=== PATIENT | female | born 1935 | race Caucasian/White ===

== ENCOUNTER → 2023-09-17 13:47 | Outpatient (REF) | payer MEDICARE, SELFPAY | LOC: DHCBC HW 13:47 | PROVIDERS: ATTENDING PHYSICIAN Internal Medicine; FAMILY PHYSICIAN Physician Assistant Medical | DX: I42.8 Other cardiomyopathies (principal); I44.7 Left bundle-branch block, unspecified; I25.10 Atherosclerotic heart disease of native coronary artery without angina pectoris | CPT/HCPCS: 93306 ==